=== PATIENT | male | born 1990 | race Caucasian/White ===

== ENCOUNTER 2019-02-27 12:28 | Emergency (ER) | payer OTHER ==
[2019-02-27 12:54] VITALS: BP 155/90; PULSE 62; TEMP 98; BMI 21.6
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
== END 2019-02-27 16:18 | disposition home or self-care (01) ==
LOC: JER 12:28
DX: S09.90XA Unspecified injury of head, initial encounter (principal); T14.8XXA Other injury of unspecified body region, initial encounter; V23.4XXA Motorcycle driver injured in collision with car, pick-up truck or van in traffic accident, initial encounter; Y93.89 Activity, other specified; Y92.410 Unspecified street and highway as the place of occurrence of the external cause; M79.10 Myalgia, unspecified site; S06.9X1A Unspecified intracranial injury with loss of consciousness of 30 minutes or less, initial encounter; Z72.0 Tobacco use
CPT/HCPCS: 70450-TC; 72125-TC; 73110-TC-LT-FY; 73130-TC-LT-FY; 73523-TC-FY; 99281-25

== ENCOUNTER 2019-03-05 15:15 | Emergency (ER) | payer OTHER ==
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
[2019-03-05 15:41] VITALS: BP 127/60; PULSE 51; TEMP 98.2; BMI 25.0
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
[2019-03-05 17:13] LABS: BASO % 0.7 % (0-2.0); EOS % 2.7 % (0-4.5); HEMATOCRIT 45.7 % (35.4-49); HEMOGLOBIN 15.4 GM/dL (11.7-16.9); LYMPH % 31.7 % (8-40); MCH 31.4 pg (25.7-33.7); MCHC 33.8 g/dl (32.0-35.9); MEAN CELL VOLUME 93.1 fl (80-96); MEAN PLT VOLUME 7.9 fl (7.5-11.1); MONO % 9.3 % (3.8-10.2); NEUT % 55.6 % (42.8-82.8); PLATELET COUNT 210 K/MM3 (134-434); RBC 4.91 M/mm3 (4.00-5.60); RDW 13.2 % (11.9-15.9); WHITE BLOOD COUNT 6.3 K/mm3 (4.0-10.0)
[2019-03-05 17:34] LABS: ALBUMIN 4.1 g/dl (3.4-5.0); BILIRUBIN,TOTAL 0.4 mg/dL (0.2-1); CALCIUM 8.9 mg/dL (8.5-10.1); CREATININE 0.8 mg/dL (0.55-1.3); POTASSIUM 4.1 mmol/L (3.5-5.1)
== END 2019-03-05 18:30 | disposition home or self-care (01) ==
LOC: JER 15:15
DX: L08.89 Other specified local infections of the skin and subcutaneous tissue (principal); S60.512D Abrasion of left hand, subsequent encounter; V23.4XXA Motorcycle driver injured in collision with car, pick-up truck or van in traffic accident, initial encounter; Y92.414 Local residential or business street as the place of occurrence of the external cause; Y93.55 Activity, bike riding; Y99.8 Other external cause status
CPT/HCPCS: 36415; 73130-TC-LT-FY; 80053; 85025; 87040; 99282-25